=== PATIENT | female | born 2000 | race Caucasian/White ===

== ENCOUNTER 2019-08-09 19:14 | Emergency (ER) | payer OTHER ==
[~2019-08-09] VITALS: Ht 152 cm; Wt 52.1 kg
[2019-08-09] MEDS ORDERED: HYDROcodone/APAP 5 MG/325 MG (LORTAB) TAB PO ONE (19:45)
--- NOTE | 2019-08-09 19:58 | ED Fall/Injury ---
General Chief Complaint: Trauma-Non Activation Stated Complaint: INJURED RT ARM/FELL Nursing Triage Note: fell from approximatly 6 feet onto tail bone and subsequently on to right elbow. Source: patient Exam Limitations: no limitations History of Present Illness Date Seen by Provider: Aug 09, 2019 Time Seen by Provider: 19:56 Initial Comments To ER with right elbow and tailbone pain after a cheerleading accident, she was up on top of the cheerleading group of people when she fell and tried to catch herself on extended right arm Location Injury Occurred: practive field Occurred: just prior to arrival Severity: moderate Injuries/Pain Location: upper extremity Context: lost balance Loss of Consciousness: no loss of consciousness Associated Symptoms (Fall): Denies Symptoms Allergies and Home Medications Allergies Coded Allergies: No Known Drug Allergies (Unverified , 08/09/19) Patient Home Medication List Home Medication List Reviewed: Yes Review of Systems Review of Systems Constitutional: see HPI Eyes: No Symptoms Reported Ears, Nose, Mouth, Throat: no symptoms reported Respiratory: no symptoms reported Cardiovascular: no symptoms reported Genitourinary: no symptoms reported Musculoskeletal: no symptoms reported Skin: no symptoms reported Psychiatric/Neurological: No Symptoms Reported Past Ahankcm-Ffzdle-Sdhpkf Hx Patient Social History Alcohol Use: Occasionally Uses Recreational Drug Use: No Smoking Status: Never a Smoker Recent Foreign Travel: No Contact w/Someone Who Travel: No Recent Infectious Disease Expo: No Physical Abuse: No Sexual Abuse: No Mistreated: No Fear: No Past Medical History : No Physical Exam Vital Signs Vital Signs - First Documented Capillary Refill : Less Than 3 Seconds Height, Weight, BMI Height: '" Weight: lbs. oz. kg; 22.00 BMI Method: General Appearance: WD/WN, no apparent distress HEENT: PERRL/EOMI, normal ENT inspection, TMs normal Neck: non-tender, full range of motion Respiratory: no respiratory distress, no accessory muscle use Gastrointestinal: normal bowel sounds, non tender Extremities: normal capillary refill, other (no pain with pronation but does have pain with supination at the right forearm, the pain is over the elbow itself. The distal humeral condyles are nontender to palpation) Neurologic/Psychiatric: alert, normal mood/affect, oriented x 3 Skin: normal color, warm/dry Lori Coma Score Best Eye Response: (4) Open Spontaneously Best Verbal Response: (5) Oriented Best Motor Response: (6) Obeys Commands Carlos Total: 15 Progress/Results/Core Measures Results/Orders My Orders Orders - RUSSELL ORTIZ APRN Hydrocodone/Apap 5/325 Tablet (Lortab 5 (08/09/19 19:45) Elbow, Right, 3 Views (08/09/19 19:51) Sacrum And Coccyx (08/09/19 19:51) Medications Given in ED Current Medications Medications Dose Ordered Sig/Juana Route Start Time Stop Time Status Last Admin Dose Admin Acetaminophen/ Hydrocodone Bitart 1 tab ONCE ONCE PO 08/09/19 19:45 08/09/19 19:46 DC 08/09/19 19:52 1 TAB Vital Signs/I&O 08/09/19 08/09/19 19:31 19:31 Temp 37.4 37.4 Pulse 99 99 Resp 18 18 B/P (MAP) 126/98 (107) 126/98 (107) Pulse Ox 99 99 Blood Pressure Mean: 107 Departure Impression Primary Impression: Elbow sprain Qualified Codes: S53.401A - Unspecified sprain of right elbow, initial encounter Disposition: 01 HOME, SELF-CARE Condition: Stable Departure-Patient Inst. Decision time for Depature: 20:35 Patient Instructions: Elbow Sprain (DC) Add. Discharge Instructions: 1. Return to ER for any concerns 2. All di. Thank you sling to the right arm as needed for comfort, Tylenol and ibuprofen for pain control. RUSSELL ORTIZ APRN Aug 09, 2019 19:58
--- NOTE | 2019-08-09 20:25 | Diagnostic Imaging Report ---
EXAM: Elbow, right, 3 views. INDICATION: Fall. EXAMINATION: Right elbow pain. COMPARISON: None. FINDINGS: No fracture or malalignment. No right elbow joint effusion. No radiopaque foreign bodies. IMPRESSION: Negative right elbow radiographs. Dictated by: Dictated on workstation # [id number]
--- NOTE | 2019-08-09 20:26 | Diagnostic Imaging Report ---
EXAM: Sacrum and coccyx. INDICATION: Fall. Tailbone pain. COMPARISON: None. FINDINGS: No fracture or malalignment. No suspicious osteoblastic or lytic lesions. Soft tissue shadows are unremarkable. IMPRESSION: No acute radiographic findings in the sacrum or coccyx. Dictated by: Dictated on workstation # [id number]
[2019-08-09 20:42] VITALS: BP 126/98
== END 2019-08-09 20:42 | disposition home or self-care (01) ==
LOC: ER 19:16
DX: S53.401A Unspecified sprain of right elbow, initial encounter (principal); W17.89XA Other fall from one level to another, initial encounter; Y93.45 Activity, cheerleading
CPT/HCPCS: 72220; 73080

== ENCOUNTER 2020-11-29 07:21 | Emergency (ER) | payer OTHER ==
[~2020-11-29] VITALS: Ht 155 cm; Wt 50.0 kg
[2020-11-29 08:07] LABS: BASOPHILS % (AUTO) 1 % (0-10); EOSINOPHILS # (AUTO) 0.1 10^3/uL (0.0-0.3); EOSINOPHILS % (AUTO) 3 % (0-10); HEMATOCRIT 38 % (35-52); LYMPHOCYTES # (AUTO) 1.8 10^3/uL (1.0-4.0); LYMPHOCYTES % (AUTO) 58 % (12-44); MEAN CORPUSCULAR HEMOGLOBIN 31 pg (25-34); MEAN CORPUSCULAR HGB CONC 34 g/dL (32-36); MEAN CORPUSCULAR VOLUME 90 fL (80-99); MEAN PLATELET VOLUME 10.1 fL (9.0-12.2); MONOCYTES # (AUTO) 0.2 10^3/uL (0.0-1.0); MONOCYTES % (AUTO) 6 % (0-12); NEUTROPHILS % (AUTO) 33 % (42-75); PLATELET COUNT 248 10^3/uL (130-400); WHITE BLOOD COUNT 3.1 10^3/uL (4.3-11.0)
[2020-11-29] MEDS ORDERED: fentaNYL INJECTION 100 MCG/2 ML AMP IVP ONE (08:15)
[2020-11-29] MEDS ORDERED: IOHEXOL 350 MG/ML 100 ML (OMNIPAQUE 350) VIAL IV ONE (08:15)
[2020-11-29] MEDS ORDERED: NS 100 ML (IVPB) BAG IV ONE (08:15)
[2020-11-29] MEDS ORDERED: HOLD METFORMIN - RECEIVED CONTRAST 20 ML VIAL IV SCH (08:15)
[2020-11-29] MEDS ORDERED: CATHETER FLUSH 10 ML SYR IV PRN (08:15)
--- NOTE | 2020-11-29 08:16 | ED Abdominal Pain ---
General Chief Complaint: Abdominal/GI Problems Stated Complaint: RLQ PAIN Nursing Triage Note: PT AMB TO ROOM 5. STATES SHE STARTED SPOTTING YESTERDAY AND BEGAIN TO HAVE RLQ PAIN BEGAIN LAST NOC EARLY THIS AM. PT TOOK IBUPROFEN AT 4AM WITH NO RELIEF. STATES HER MENSUS WAS NORMAL LAST MONTH. PT HAD A NORMAL PAP 03/2020. Sepsis Screen: No Definite Risk (IVONNE YUN STUDENT) History of Present Illness Date Seen by Provider: Nov 29, 2020 Time Seen by Provider: 08:00 Initial Comments This is a 20 year old female presenting to the Emergency Department via ambulation for a chief complaint of right lower quadrant pain that began last night. She had stabbing pain that was 9/10. She also had light spotting around noon yesterday which she states is abnormal for her. She has tried ibuprofen and denies it being helpful. Straightening her legs makes the pain worse. She had difficulty getting out of bed this morning and straightening her legs. She has been on the pill for 2-3 years and is sexually active. Last menstrual period was around the last week of October. She denies fever, nausea, vomiting, or changes in bowel habits or urination. She had a Pap smear in March and 1 previous UTI. She denies any previous occurrences. PMHx: none PSHx: wisdom teeth removal, estrellita removal Medications: none Allergies to meds: none SocHx: no smoking. drinks occasionally. no drugs. Timing/Duration: 1 Day Location: RLQ Radiation: No Radiation (IVONNE YUN STUDENT) Allergies and Home Medications Allergies Coded Allergies: fentanyl (Verified Adverse Reaction, Mild, Vomiting, 11/29/20) Patient Home Medication List Home Medication List Reviewed: Yes (ANAM LO MD) Review of Systems Review of Systems Constitutional: No fever EENTM: No Symptoms Reported Respiratory: No Symptoms Reported Cardiovascular: No Symptoms Reported Gastrointestinal: Abdominal Pain; Denies Constipated, Denies Diarrhea, Denies Nausea Genitourinary: Denies Burning, Denies Frequency; Other (spotting) Musculoskeletal: no symptoms reported; No back pain Skin: no symptoms reported Psychiatric/Neurological: No Symptoms Reported; Denies Headache Endocrine: No Symptoms Reported Hematologic/Lymphatic: No Symptoms Reported (IVONNE YUN STUDENT) Past Ggkoqzp-Rinbyy-Yzhoow Hx Patient Social History Alcohol Use: Rarely Uses Alcohol Beverage of Choice: Other Smoking Status: Never a Smoker 2nd Hand Smoke Exposure: No Recent Infectious Disease Expo: No (IVONNE YUN [email or web address] STUDENT) Past Medical History Last Menstrual Period: Oct 30, 2020 (IVONNE YUN [employer] STUDENT) Physical Exam Vital Signs Vital Signs - First Documented 11/29/20 07:42 Temp 36.7 Pulse 91 Resp 16 B/P (MAP) 121/81 (94) Pulse Ox 100 O2 Delivery Room Air (ANAM LO MD) Vital Signs Capillary Refill : Less Than 3 Seconds (IVONNE YUN X [employer] STUDENT) Height/Weight/BMI Height: '" Weight: lbs. oz. kg; 20.00 BMI Method: General Appearance: mild distress Respiratory: chest non-tender, lungs clear, normal breath sounds, no respiratory distress, no accessory muscle use Cardiovascular: regular rate, rhythm, other (borderline tachycardia - 97 HR) Gastrointestinal: normal bowel sounds, guarding, tenderness, other (+ Rovsings sign. ) Extremities: non-tender, other (abdominal pain with straightening legs.) Neurologic/Psychiatric: alert Skin: normal color, warm/dry (IVONNE YUN [email or web address] STUDENT) Progress/Results/Core Measures Results/Orders Lab Results Laboratory Tests Test 11/29/20 07:42 11/29/20 08:09 Range/Units White Blood Count 3.1 L 4.3-11.0 10^3/uL Red Blood Count 4.22 3.80-5.11 10^6/uL Hemoglobin 13.0 11.5-16.0 g/dL Hematocrit 38 35-52 % Mean Corpuscular Volume 90 80-99 fL Mean Corpuscular Hemoglobin 31 25-34 pg Mean Corpuscular Hemoglobin Concent 34 32-36 g/dL Red Cell Distribution Width 12.2 10.0-14.5 % Platelet Count 248 130-400 10^3/uL Mean Platelet Volume 10.1 9.0-12.2 fL Immature Granulocyte % (Auto) 0 % Neutrophils (%) (Auto) 33 L 42-75 % Lymphocytes (%) (Auto) 58 H 12-44 % Monocytes (%) (Auto) 6 0-12 % Eosinophils (%) (Auto) 3 0-10 % Basophils (%) (Auto) 1 0-10 % Neutrophils # (Auto) 1.0 L 1.8-7.8 10^3/uL Lymphocytes # (Auto) 1.8 1.0-4.0 10^3/uL Monocytes # (Auto) 0.2 0.0-1.0 10^3/uL Eosinophils # (Auto) 0.1 0.0-0.3 10^3/uL Basophils # (Auto) 0.0 0.0-0.1 10^3/uL Immature Granulocyte # (Auto) 0.0 0.0-0.1 10^3/uL Sodium Level 143 135-145 MMOL/L Potassium Level 3.9 3.6-5.0 MMOL/L Chloride Level 108 H 98-107 MMOL/L Carbon Dioxide Level 24 21-32 MMOL/L Anion Gap 11 5-14 MMOL/L Blood Urea Nitrogen 8 7-18 MG/DL Creatinine 0.76 0.60-1.30 MG/DL Estimat Glomerular Filtration Rate > 60 BUN/Creatinine Ratio 11 Glucose Level 107 H 70-105 MG/DL Calcium Level 8.9 8.5-10.1 MG/DL Corrected Calcium 8.8 8.5-10.1 MG/DL Total Bilirubin 0.2 0.1-1.0 MG/DL Aspartate Amino Transf (AST/SGOT) 47 H 5-34 U/L Alanine Aminotransferase (ALT/SGPT) 58 H 0-55 U/L Alkaline Phosphatase 51 40-136 U/L C-Reactive Protein High Sensitivity 0.10 0.00-0.50 MG/DL Total Protein 7.0 6.4-8.2 GM/DL Albumin 4.1 3.2-4.5 GM/DL Serum Test, Qualitative NEGATIVE NEGATIVE Urine Color YELLOW Urine Clarity CLEAR Urine pH 8.0 5-9 Urine Specific Raymond 1.010 L 1.016-1.022 Urine Protein NEGATIVE NEGATIVE Urine Glucose (UA) NEGATIVE NEGATIVE Urine Ketones NEGATIVE NEGATIVE Urine Nitrite NEGATIVE NEGATIVE Urine Bilirubin NEGATIVE NEGATIVE Urine Urobilinogen 0.2 < = 1.0 MG/DL Urine Leukocyte Esterase NEGATIVE NEGATIVE Urine RBC (Auto) NEGATIVE NEGATIVE Urine RBC NONE /HPF Urine WBC 0-2 /HPF Urine Squamous Epithelial Cells 2-5 /HPF Urine Crystals NONE /LPF Urine Bacteria TRACE /HPF Urine Casts NONE /LPF Urine Mucus SMALL H /LPF Urine Culture Indicated NO (ANAM LO MD) My Orders Orders - ANAM LO MD Cbc With Automated Diff (11/29/20 07:58) Comprehensive Metabolic Panel (11/29/20 07:58) Hs C Reactive Protein (11/29/20 07:58) Hcg,Qualitative Serum (11/29/20 07:58) Ua Culture If Indicated (11/29/20 07:58) Ed Iv/Invasive Line Start (11/29/20 07:58) Fentanyl Injection (Sublimaze Injection (11/29/20 08:15) Ct Abd/Pelv W (Appendicitis) (11/29/20 08:06) Iohexol Injection (Omnipaque 350 Mg/Ml 1 (11/29/20 08:15) Received Contrast (Hold Metformin- Contr (11/29/20 08:15) Sodium Chloride Flush (Catheter Flush Sy (11/29/20 08:15) Ns (Ivpb) (Sodium Chloride 0.9% Ivpb Bag (11/29/20 08:15) Ondansetron Injection (Zofran Injectio (11/29/20 08:45) Ketorolac Injection (Toradol Injection) (11/29/20 09:30) (ANAM LO MD) Medications Given in ED Current Medications Medications Dose Ordered Sig/Juana Route Start Time Stop Time Status Last Admin Dose Admin Fentanyl Citrate 50 mcg ONCE ONCE IVP 11/29/20 08:15 11/29/20 08:16 DC 11/29/20 08:25 50 MCG Iohexol 75 ml ONCE ONCE IV 11/29/20 08:15 11/29/20 08:31 DC 11/29/20 09:00 66 ML Ondansetron HCl 8 mg ONCE ONCE IVP 11/29/20 08:45 11/29/20 08:46 DC 11/29/20 08:36 8 MG Sodium Chloride 10 ml NEEDED PRN IV 11/29/20 08:15 11/29/20 12:57 DC 11/29/20 09:01 10 ML Sodium Chloride 100 ml ONCE ONCE IV 11/29/20 08:15 11/29/20 08:31 DC 11/29/20 09:01 80 ML (ANAM LO MD) Vital Signs/I&O 11/29/20 11/29/20 07:42 09:59 Temp 36.7 36.7 Pulse 91 93 Resp 16 16 B/P (MAP) 121/81 (94) 107/65 (94) Pulse Ox 100 100 O2 Delivery Room Air (ANAM LO MD) Blood Pressure Mean: 94 Progress Progress Note #1: Time: 08:10 Progress Note - The patient's history and physical exam strongly indicate possible appendicitis. UA, CBC, CMP, CRP and test were ordered. bHCG is negative. Other lab results pending. IV line established. CT risks and benefits were discussed with the patient. Patient agreed to have CT. CT of abdomen and pelvis ordered, results pending. Patient voiced inability to extend legs fully and lay still for the extend of the CT. Fentanyl ordered. Progress Note #2: Time: 09:17 Progress Note - The CT revealed ovarian cysts but the appendix could not be visualized. Patient vomited due to fentanyl and was given zofran. Based on the labs and CT results, we discussed the possibility of an enlarged cyst and viral infection. control options were discussed and the patient was given control resources and handouts by the CDC. (IVONNE YUN X [employer] STUDENT) Progress Note #1: Time: 08:45 Progress Note Patient was seen and examined by me along with Ivonne Yun, MS 3. There was significant concern for appendicitis based on exam. Patient had very strong peritoneal signs with positive Rovsing sign on percussion. She had a guarding as well. She had difficulty lying with her leg straight in bed due to pain. She prefers her knees to be drawn in the flexed position. I discussed risks and benefits of CT scan which included a radiation exposure. After discussion of risks and benefits, patient consented to CT. Fentanyl was given for pain. Patient began to vomit and Zofran was given for nausea. Patient is presently in CT. Progress Note #2: Progress Note After review of labs and CT, patient was thought to have ovarian cyst and/or mesenteric adenitis as the source of her pain. Toradol was given for further pain management and patient was discharged home. No evidence of appendicitis was seen on CT. (ANAM LO MD) Diagnostic Imaging Diagonstic Imaging: CT Plain Films/CT/US/NM/MRI: abdomen, pelvis Comments NAME: GAMA AVILEZ [facility] REC#: [id number] PT STATUS: REG ER : 2000 PHYSICIAN: ANAM LO MD ADMIT DATE: 11/29/20/ER Draft Date of Exam:11/29/20 CT ABD/PELV W (APPENDICITIS) PROCEDURE: CT abdomen and pelvis with contrast, rule out appendicitis. TECHNIQUE: Multiple contiguous axial images were obtained through the abdomen and pelvis after the administration of intravenous contrast. All CT scans use one or more of the following dose optimizing techniques: automated exposure control, MA and/or KvP adjustment based on patient size and exam type or iterative reconstruction. INDICATION: Right lower quadrant pain I am unable to confidently identify this patient's appendix. Cecum showed no thickening and no appreciable pericecal edema to suggest nonvisualization of an underlying inflamed appendix. There is a right adnexal cyst measuring 3.1 cm likely ovarian. There is a left adnexal cyst of 2.3 cm. The uterus unremarkable. The urinary bladder was unremarkable. There is no hydroureteronephrosis and no radiopaque urinary tract calculi. No hepatobiliary abnormality. The spleen, adrenals and pancreas negative. The patent aortoiliac vessels are nonaneurysmal. There is a mildly elevated colonic fecal load, a component of constipation could not be excluded in the appropriate scenario. The lung bases and the bony structures appeared nonacute. IMPRESSION: 1. Nonidentification of the appendix but no right lower quadrant inflammatory changes to suggest appendicitis. 2. Bilateral adnexal cysts, presumed ovarian, greater right. 3. Nonfocal unobstructed urinary tracts. 4. Equivocal findings for mild constipation without impaction or obstruction. Dictated on workstation # [id number] Dict: 11/29/20 0903 Trans: 11/29/20 0911 [facility] [id number] Interpreted by: JOSE EDUARDO CHISHOLM Electronically signed by: Time of Consult: 09:03 Reviewed: Reviewed by Me (IVONNE YUN MED STUDENT) Departure Impression Primary Impression: Right lower quadrant pain Additional Impression: Ovarian cyst Qualified Codes: N83.201 - Unspecified ovarian cyst, right side; N83.202 - Unspecified ovarian cyst, left side Disposition: , SELF-CARE Condition: Improved Departure-Patient Inst. Decision time for Depature: 09:25 (ANAM LO MD) Referrals: [facility] (PCP/Family) Primary Care Physician Patient Instructions: Ovarian Cyst (DC), Severe Abdominal Pain, Adult (DC) Add. Discharge Instructions: Drink plenty of clear liquids. Start with a clear liquid diet today and gradually advance your diet with small quantities of bland food as tolerated. For pain you may take a combination of ibuprofen up to 400 mg every 6 hours as needed and Tylenol (acetaminophen) up to 650 mg every 6 hours as needed. Call with questions or concerns. Return to the emergency room if you have worsening symptoms including escalating pain despite medication use, fever over 100 degrees, recurrent nausea and vomiting, or any other troubling symptoms. All discharge instructions reviewed with patient and/or family. Voiced understanding. Work/School Note: School/Childcare Release Date Seen in the Emergency Department: Nov 29, 2020 Time Dismissed from Emergency Department: 10:00 Return to School: Nov 29, 2020 Medical Student Attestation and Attending Note: I have personally interviewed and examined this patient along with Ivonne Yun, MS 3. I have reviewed student documentation including history, physical, and assessments. I agree with the documentation except where otherwise noted. Exam: General: Alert, oriented, minimal acute distress, well developed HEENT: Normocephalic and atraumatic Heart: Regular rate and rhythm without murmur, borderline tachycardia Lungs: Clear to auscultation bilaterally with normal effort Abdomen: Soft, nondistended, normal bowel sounds, moderate to severe tenderness in the right lower quadrant, positive Rovsing sign and other quadrants, notable pain to percussion Neuropsych: Alert, oriented, no focal deficits Skin: Warm and dry without rashes (ANAM LO MD) Copy Copies To 1: VELVET GARCIA MD, ELIZABETH X MED STUDENT Nov 29, 2020 08:16 ANAM LO MD Nov 29, 2020 08:48
[2020-11-29 08:17] LABS: BILIRUBIN,URINE NEGATIVE (NEGATIVE); CLARITY,URINE CLEAR; COLOR,URINE YELLOW; GLUCOSE, URINE (UA) NEGATIVE (NEGATIVE); KETONES,URINE NEGATIVE (NEGATIVE); LEUKOCYTE ESTERASE ,URINE NEGATIVE (NEGATIVE); NITRITE,URINE NEGATIVE (NEGATIVE); PROTEIN,URINE NEGATIVE (NEGATIVE)
[2020-11-29 08:20] LABS: ALBUMIN 4.1 GM/DL (3.2-4.5)
[2020-11-29 08:21] LABS: CHLORIDE 108 MMOL/L (98-107); POTASSIUM 3.9 MMOL/L (3.6-5.0); SODIUM 143 MMOL/L (135-145)
[2020-11-29 08:22] LABS: CALCIUM 8.9 MG/DL (8.5-10.1)
[2020-11-29 08:23] LABS: GLUCOSE 107 MG/DL (70-105)
[2020-11-29 08:24] LABS: CARBON DIOXIDE 24 MMOL/L (21-32)
[2020-11-29 08:25] LABS: BILIRUBIN,TOTAL 0.2 MG/DL (0.1-1.0)
[2020-11-29 08:26] LABS: ALKALINE PHOSPHATASE 51 U/L (40-136)
[2020-11-29 08:27] LABS: CREATININE SERUM 0.76 MG/DL (0.60-1.30); GFR ESTIMATED > 60
[2020-11-29 08:28] LABS: BUN/CREATININE RATIO 11
[2020-11-29 08:30] LABS: ALANINE AMINOTRANSFERASE 58 U/L (0-55)
[2020-11-29 08:31] LABS: BACTERIA,URINE TRACE /HPF; WBC,URINE 0-2 /HPF
[2020-11-29] MEDS ORDERED: ONDANSETRON 4 MG/2 ML (SDV) Z0FRAN IVP ONE (08:45)
--- NOTE | 2020-11-29 09:11 | Diagnostic Imaging Report ---
PROCEDURE: CT abdomen and pelvis with contrast, rule out appendicitis. TECHNIQUE: Multiple contiguous axial images were obtained through the abdomen and pelvis after the administration of intravenous contrast. All CT scans use one or more of the following dose optimizing techniques: automated exposure control, MA and/or KvP adjustment based on patient size and exam type or iterative reconstruction. INDICATION: Right lower quadrant pain I am unable to confidently identify this patient's appendix. Cecum showed no thickening and no appreciable pericecal edema to suggest nonvisualization of an underlying inflamed appendix. There is a right adnexal cyst measuring 3.1 cm likely ovarian. There is a left adnexal cyst of 2.3 cm. The uterus unremarkable. The urinary bladder was unremarkable. There is no hydroureteronephrosis and no radiopaque urinary tract calculi. No hepatobiliary abnormality. The spleen, adrenals and pancreas negative. The patent aortoiliac vessels are nonaneurysmal. There is a mildly elevated colonic fecal load, a component of constipation could not be excluded in the appropriate scenario. The lung bases and the bony structures appeared nonacute. IMPRESSION: 1. Nonidentification of the appendix but no right lower quadrant inflammatory changes to suggest appendicitis. 2. Bilateral adnexal cysts, presumed ovarian, greater right. 3. Nonfocal unobstructed urinary tracts. 4. Equivocal findings for mild constipation without impaction or obstruction. Dictated by: Dictated on workstation # [id number]
[2020-11-29] MEDS ORDERED: KETOROLAC 30 MG/ML VIAL IVP ONE (09:30)
[2020-11-29 09:59] VITALS: BP 107/65
== END 2020-11-29 09:59 | disposition home or self-care (01) ==
LOC: EDUNIT# 07:21 → ER 07:23
DX: N83.201 Unspecified ovarian cyst, right side (principal); Z88.8 Allergy status to other drugs, medicaments and biological substances
CPT/HCPCS: 36415; 74177; 80053; 81000; 84703; 85025; 86141